=== PATIENT | male | born 1985 | race Caucasian/White ===

== ENCOUNTER 2019-10-24 05:28 | Day surgery (SDC) | payer OTHER ==
[~2019-10-24] VITALS: Ht 188 cm; Wt 78.0 kg
[2019-10-24 06:05] VITALS: BP 149/87
[2019-10-24] MEDS ORDERED: OXYMETAZOLINE NASAL SPRAY 0.05%, 15ML ONE (06:06)
[2019-10-24] MEDS ORDERED: LIDOCAINE 1%-EPI 1:100K, 20ML ONE (06:06)
[2019-10-24] MEDS ORDERED: BACITRACIN OINT 500U/GM, 15 GM ONE (06:06)
[2019-10-24] MEDS ORDERED: LACTATED RINGERS 1,000 ML IV SCH (06:09)
[2019-10-24] MEDS ORDERED: CHLORHEXIDINE 15 ML UDC MM STA (06:09)
[2019-10-24] MEDS ORDERED: ROCURONIUM 10MG/ML,5ML ONE (06:43)
[2019-10-24] MEDS ORDERED: FENTANYL PF 250 MCG/5ML ONE (06:43)
[2019-10-24] MEDS ORDERED: PROPOFOL 10 MG/ML, 20ML ONE (06:43)
[2019-10-24] MEDS ORDERED: MIDAZOLAM 1 MG/ML, 2ML ONE (06:43)
[2019-10-24] MEDS ORDERED: MINO100C61 PO (06:46)
[2019-10-24] MEDS ORDERED: DEXAMETHASONE 4 MG/ML, 1ML ONE ×2 (06:47)
[2019-10-24] MEDS ORDERED: CEFAZOLIN 1,000 MG ONE ×2 (07:25)
[2019-10-24] MEDS ORDERED: ONDANSETRON 2MG/ML, 2ML ONE ×2 (07:48→08:44)
[2019-10-24] MEDS ORDERED: ONDANSETRON 2MG/ML, 2ML IVPush PRN (08:00)
[2019-10-24] MEDS ORDERED: FENTANYL PF 100 MCG/2ML IV PRN (08:00)
[2019-10-24] MEDS ORDERED: PROMETHAZINE 25 MG/ML, 1ML IVPush PRN (08:00)
[2019-10-24] MEDS ORDERED: OXYcodone 5 MG/5 ML ORAL.SOL UDC PO PRN (08:00)
[2019-10-24] MEDS ORDERED: MEPERIDINE/PF 25MG/0.5ML IVPush PRN (08:00)
[2019-10-24] MEDS ORDERED: HYDROmorphone 1 MG/ML, 1ML INJ IVPush PRN (08:00)
[2019-10-24] MEDS ORDERED: hydrALAzine 20 MG/ML, 1ML IV PRN (08:00)
[2019-10-24] MEDS ORDERED: LABETALOL 5MG/ML, 20ML ONE (08:39)
[2019-10-24] MEDS: LABETALOL 5MG/ML, 20ML IV PRN ×3 (08:41→09:29)
[2019-10-24] MEDS ORDERED: MEPERIDINE/PF 25MG/ML,1ML ONE (08:53)
[2019-10-24] MEDS ORDERED: FENTANYL PF 100 MCG/2ML ONE (09:30)
[2019-10-24] MEDS ORDERED: OXYcodone 5 MG/5 ML ORAL.SOL UDC ONE (09:30)
== END 2019-10-24 11:15 | disposition home or self-care (01) ==
LOC: OUT 05:28
PROVIDERS: ATTEND Otolaryngology
DX: G47.33 Obstructive sleep apnea (adult) (pediatric) (principal); Z11.59 Encounter for screening for other viral diseases; J35.01 Chronic tonsillitis; J34.3 Hypertrophy of nasal turbinates; J34.89 Other specified disorders of nose and nasal sinuses
CPT/HCPCS: 30140; 42145; 88304; 88305; 88311; J0690; J1100; J2175; J2250; J2405; J2704; J3010; J3490; J7120; U0001